=== PATIENT | male | born 1945 | race African-American/Black ===

== ENCOUNTER → 2018-08-22 | Outpatient (CLI) | payer OTHER, BC ==
[~2018-08-22] VITALS: Ht 170.2 cm; Wt 93.0 kg
[~2018-08-22] MED LIST: ACCUPRIL40 MG PO; ASPIR 8181 MG PO; FISH OIL 1,001000 M2 PO; LIPITOR80 MG PO; METFORMIN HCL500 MG PO; MULTIVITAMINS1 EAC7 PO; NORVASC5 MG PO; VITAMIN B-12500 MCG PO
--- NOTE | ~2018-08-22 | P ---
[facility] [place] [address] PROCEDURE REPORT Name: BETH DALY JR Room #: REG [facility]#: [id number] Admission: 08/22/18 ������������������ Attend Phys: Rafy Oviedo MD Discharge: ������������������ Date of : 43 Report #: [id number] THIS REPORT FOR: //name// CC: Orlin Oviedo OUTPATIENT COLONOSCOPY BRIEF HISTORY: The patient is a 72-year-old male with a history of a diminutive rectal carcinoid removed endoscopically in 2008. Father had colon cancer, at age 50. He has also had adenomas removed in the past. He presents for high risk screening colonoscopy. PREOPERATIVE DIAGNOSIS: High risk screening colonoscopy. POSTOPERATIVE DIAGNOSES: 1. Diminutive polyp, cecum. 2. Small internal hemorrhoids. MEDICATIONS: Deep sedation with propofol per anesthesia. SPECIMEN: Cecal polyp. ESTIMATED BLOOD LOSS: 3 mL. PROCEDURE: Colonoscopy to cecum and terminal ileum with biopsy. FINDINGS: Prior to propofol sedation, procedure of colonoscopy discussed with the patient as well as potential risks and its complications. He indicates he understands and desires to proceed. DESCRIPTION OF PROCEDURE: With the patient in left lateral decubitus position, digital examination was completed, which revealed no abnormalities. Subsequently, Olympus video colonoscope was introduced in the rectum, advanced under direct vision to the cecum. Done with minimal difficulty. The cecum was identified by the ileocecal valve and the appendiceal orifice. I was able to visualize the distal segment of the terminal ileum, which was inspected and noted to be unremarkable. At that point, the scope was slowly withdrawn and careful circumferential views obtained. Upon slow withdrawal of the scope, the prep was good. The mucosa was within normal limits, normal vascular pattern, normal light reflex. As we withdrew the scope, a diminutive polyp was seen in the cecum, removed with biopsy forceps. Scope was further withdrawn and no additional neoplastic abnormalities were seen. The mucosa was normal throughout the remainder of the exam. Scope was withdrawn in the rectum. Upon retroflexion; however, small hemorrhoids were seen. Scope was withdrawn. The patient tolerated the procedure well. [facility] [address] [place] [address] PROCEDURE REPORT Name: BETH DALY Room #: REG [facility]#: [id number] Admission: 08/22/18 ������������������ Attend Phys: Rafy Oviedo MD Discharge: ������������������ Date of : 43 Report #: [id number] CONDITION OF THE PATIENT UPON DISCHARGE: Following the procedure, the patient drowsy, aroused, conversant, and will be discharged home when fully ambulatory. INSTRUCTIONS TO THE PATIENT AND FAMILY AT THE TIME OF DISCHARGE: We will follow up on the path of polyp; however, given the patient's family history and personal history, I suggest return in 5 years for followup colon exam. Last colonoscopy was 3 years ago. Withdrawal time from the cecum was 16 minutes and 9 seconds. ��������������������������������������������� ���������������������������������������� By: ��������������������������������������������� [id number] Rafy Oviedo MD /juan
--- NOTE | 2018-08-23 16:06 | PATH ---
[facility] [address] [place] [address] PATHOLOGY RPT PROCEDURE Name: BETH DALY Room #: REG [facility].Tu.#: [id number] ������������������ Admission: 08/22/18 ������������������ Date of : 43 Discharge: Report #: [id number] Path Case #: [id number] [facility] Accession Number: [id number] . 01 Material submitted: . cecum - BX POLYP AT CECUM . 01 Clinical history: . Pre-OP DX: Hx polyps, family HX colon cancer, Hx rectal carcinoid Post-OP DX: Colon polyp, small hemorrhoids . 02 Diagnosis: Polyp, at cecum, endoscopic biopsy: - Tubular adenoma. - Negative for high-grade dysplasia. (IUV:pit; 08/23/2018) QTP/08/23/2018 . 02 Electronically signed: . Shell Blake MD, Pathologist NPI- [id number] . 01 Gross description: . Received in formalin labeled "Beth Daly Jr, BX polyp at cecum," is a single segment of stein soft tissue measuring 0.5 cm in maximum dimension. The specimen is entirely submitted in cassette A1. (TSD; 08/22/2018) TOB/TOB . 02 Pathologist provided ICD-10: D12.0 . 02 CPT . 151160 Specimen Comment: A courtesy copy of this report has been sent to Specimen Comment: [phone], . Specimen Comment: Report sent to / DR ROBLERO Performed at: [address], [place], [place] [id number] MD Jose Burrell MD Phone: [phone] Performed at: [address] [id number] MD Shell Blake MD Phone: [phone]
== END | disposition home or self-care (01) ==
LOC: GI 07:19
DX: Z12.11 Encounter for screening for malignant neoplasm of colon (principal); Z85.040 Personal history of malignant carcinoid tumor of rectum; Z86.010 Personal history of colon polyps; D12.0 Benign neoplasm of cecum; Z80.0 Family history of malignant neoplasm of digestive organs; K64.8 Other hemorrhoids; I10 Essential (primary) hypertension; E78.00 Pure hypercholesterolemia, unspecified; E11.9 Type 2 diabetes mellitus without complications; Z98.890 Other specified postprocedural states; Z79.82 Long term (current) use of aspirin; Z79.899 Other long term (current) drug therapy
CPT/HCPCS: 62110; 62900